=== PATIENT | female | born 1940 | race Caucasian/White ===

== ENCOUNTER 2016-12-21 14:25 | Emergency (ER) | payer MEDICARE, BC ==
[2016-12-21 14:49] VITALS: BP 134/68
[2016-12-21] MEDS ORDERED: Diphtheria,Pertussis(Acell),Tetanus Vaccine 0.5 ML Syringe IM ONE (14:56)
--- NOTE | 2016-12-21 15:11 | EDM.PDOC ---
ED HPI GENERAL MEDICAL PROBLEM - General Chief Complaint: Laceration Stated Complaint: CUT ON FINGER Time Seen by Provider: 12/21/16 14:30 Source of Information: Reports: Patient History Limitations: Reports: No Limitations - History of Present Illness INITIAL COMMENTS - FREE TEXT/NARRATIVE: Patient was using a meat blender to cut carrots. She says she cut it to short and her finger ended up in the grater. She has no other complaints. She just wants to be patched up and get on her way. Arrives with help of a friend and in a wheelchair. Onset: Today, Sudden Location: Reports: Upper Extremity, Right Severity: Mild Associated Symptoms: Reports: No Other Symptoms - Related Data Allergies Allergy/AdvReac Type Severity Reaction Status Date / Time No Known Drug Allergies Allergy Cannot Verified 12/21/16 14:49 Remember Home Meds: Home Meds . [Unable to Verify Home Med List] 12/21/16 [History] Social & Family History - Tobacco Use Smoking Status *Q: Never Smoker - Recreational Drug Use Recreational Drug Use: No ED ROS GENERAL - Review of Systems Review Of Systems: See Below Constitutional: Reports: No Symptoms HEENT: Reports: No Symptoms Respiratory: Reports: No Symptoms Cardiovascular: Reports: No Symptoms Endocrine: Reports: No Symptoms GI/Abdominal: Reports: No Symptoms : Reports: No Symptoms Musculoskeletal: Reports: No Symptoms Skin: Reports: Wound Neurological: Reports: No Symptoms Psychiatric: Reports: No Symptoms Hematologic/Lymphatic: Reports: No Symptoms Immunologic: Reports: No Symptoms ED EXAM, SKIN/RASH Exam: See Below Exam Limited By: No Limitations General Appearance: Alert, WD/WN, No Apparent Distress Head: Atraumatic, Normocephalic Extremities: Normal Inspection, Normal Range of Motion, Non-Tender, No Pedal Edema, Normal Capillary Refill Neurological: Alert, Oriented, CN II-XII Intact, Normal Cognition, Normal Gait Psychiatric: Normal Affect, Normal Mood Skin: Warm, Dry, Wound/Incision (right ring finger does have a very small laceration and abrasion. Not deep.) Location, Skin: Upper Extremity, Right Characteristics: Linear Associated features: Warmth Lymphatic: No Adenopathy ED SKIN PROCEDURES - Laceration/Wound Repair Right Finger Lac/Wound length In cm: 1 Appearance: Superficial, Linear Distal NVT: Neuro & Vascular Intact, No Tendon Injury Exploration/Debridement/Repair: Wound Explored, In a Bloodless Field, No Foreign Material Found Closed with: Dermabond Sterile Dressing Applied: Nurse Tetanus Status Addressed: Yes Complications: No Course - Vital Signs Last Recorded V/S: Last Vital Signs Temp 36.4 C 12/21/16 14:46 Pulse 79 12/21/16 14:46 Resp 18 12/21/16 14:46 BP 134/68 12/21/16 14:46 Pulse Ox 93 L 12/21/16 14:46 - Orders/Labs/Meds Orders: Active Orders 24 hr Category Date Time Status Vaccines to be Administered [RC] PER UNIT ROUTINE Care 12/21/16 14:56 Ordered Diphth,Pertuss(Acell),Tet Vac [Adacel] Med 12/21/16 14:56 Once 0.5 ml IM .ONCE ONE Departure - Departure Time of Disposition: 15:00 Disposition: Home, Self-Care 01 Condition: Good Clinical Impression: Laceration of finger - Discharge Information Instructions: Laceration Care, Adult, [id number], Stitches, [place], or Adhesive Wound Closure, [id number] Forms: ED Department Discharge Additional Instructions: Keep clean and dry You may shower, wash with soap and water and pat dry. Watch for signs of infection including temperature over 101.5F, increased swelling, pain, warmth to the site, red streak up the finger pus like drainage from the area. The dermabond will dissolve in 7-10 days on its own. Please call us with any questions or concerns. - Problem List & Annotations (1) Laceration of finger SNOMED Code(s): 698907428 Code(s): S61.219A - LACERATION W/O FB OF UNSP FINGER W/O DAMAGE TO NAIL, INIT Status: Acute Priority: Low Qualifiers: Encounter type: initial encounter Finger: ring finger Damage to nail status: without damage Foreign body presence: without foreign body Laterality: right Qualified Code(s): S61.214A - Laceration without foreign body of right ring finger without damage to nail, initial encounter - Problem List Review Problem List Initiated/Reviewed/Updated: Yes - My Orders Last 24 Hours: My Active Orders 12/21/16 14:56 Vaccines to be Administered [RC] PER UNIT ROUTINE Diphth,Pertuss(Acell),Tet Vac [Adacel] 0.5 ml IM .ONCE ONE - Assessment/Plan Last 24 Hours: My Active Orders 12/21/16 14:56 Vaccines to be Administered [RC] PER UNIT ROUTINE Diphth,Pertuss(Acell),Tet Vac [Adacel] 0.5 ml IM .ONCE ONE Assessment:: right ring finger laceration Plan: Keep clean and dry You may shower, wash with soap and water and pat dry. Watch for signs of infection including temperature over 101.5F, increased swelling, pain, warmth to the site, red streak up the finger pus like drainage from the area. The dermabond will dissolve in 7-10 days on its own. Please call us with any questions or concerns.
== END 2016-12-21 15:15 | disposition home or self-care (01) ==
LOC: VM.ED 14:25
DX: S61.214A Laceration without foreign body of right ring finger without damage to nail, initial encounter (principal); W31.89XA Contact with other specified machinery, initial encounter
CPT/HCPCS: 12001; 90471; 90715; 99282-GF-25; 99283

== ENCOUNTER 2017-06-01 14:08 | Emergency (ER) | payer MEDICARE, OTHER, BC ==
[2017-06-01] MEDS ORDERED: Sodium Chloride 0.9% 10 ML Syringe FLUSH PRN (14:15)
[2017-06-01] MEDS ORDERED: methylPREDNISolone Sodium Succinate 125 MG/2 ML SDV IVPUSH ONE (14:15)
[2017-06-01] MEDS ORDERED: Albuterol/Ipratropium 3.0-0.5 MG/3 ML Neb Soln NEB ONE (14:15)
[2017-06-01] MEDS ORDERED: LORazepam 2 MG/ML SDV IVPUSH ONE (14:22)
--- NOTE | 2017-06-01 14:27 | EDM.PDOC ---
ED HPI GENERAL MEDICAL PROBLEM - General Chief Complaint: Respiratory Problem Stated Complaint: Respiratory Problem; SOB; COPD Time Seen by Provider: 06/01/17 14:13 Source of Information: Reports: Patient, EMS Notes Reviewed, RN, RN Notes Reviewed History Limitations: Reports: No Limitations - History of Present Illness INITIAL COMMENTS - FREE TEXT/NARRATIVE: Patient is brought to the ED at [facility] via EMS for severe respiratory distress. According to patient, her symptoms began about 2 days ago. Patient states she is on home oxygen. She did try some medications for her breathing at home, but did not work, therefore she called the EMS. Upon their arrival, patient's O2 sats were in the low 80's and RR was in the mid to upper 30's. Patient appears extremely anxious. Patient has had a cough, dry, non- productive. Onset: Gradual Onset Date: 05/30/17 Left Middle Posterior Back Pain Score (Numeric/FACES): 5 - Related Data Allergies Allergy/AdvReac Type Severity Reaction Status Date / Time asthmacort Allergy Facial Uncoded 06/01/17 14:43 Swelling Home Meds: Home Meds . [Unable to Verify Home Med List] 12/21/16 [History] Social & Family History - Family History Family Medical History: Noncontributory - Tobacco Use Smoking Status *Q: Current Some Day Smoker - Recreational Drug Use Recreational Drug Use: No Drug Use in Last 12 Months: No ED ROS GENERAL - Review of Systems Review Of Systems: See Below Constitutional: Reports: Fever, Chills, Weakness, Decreased Appetite HEENT: Reports: No Symptoms Respiratory: Reports: Shortness of Breath, Wheezing, Cough. Denies: Sputum Cardiovascular: Reports: Chest Pain. Denies: Palpitations GI/Abdominal: Denies: Abdominal Pain, Nausea, Vomiting Skin: Reports: No Symptoms Neurological: Reports: No Symptoms. Denies: Dizziness, Headache ED EXAM, GENERAL - Physical Exam Exam: See Below Exam Limited By: No Limitations General Appearance: Alert, Severe Distress, Obese Head: Atraumatic, Normocephalic Neck: Supple Respiratory/Chest: Respiratory Distress, Decreased Breath Sounds, Crackles, Wheezing Cardiovascular: No Murmur, Tachycardia Peripheral Pulses: 2+: Radial (L), Radial (R) GI/Abdominal: Soft, Non-Tender, Abnormal Bowel Sounds (Hypoactive) Neurological: Alert, Oriented Skin Exam: Warm, Dry, Intact, Normal Color, No Rash EKG INTERPRETATION EKG Date: 06/01/17 Time: 14:21 Rhythm: Other (Sinus Tachycardia) Rate (Beats/Min): 128 [place]: Normal P-Wave: Present QRS: Normal ST-T: Normal QT: Normal HI/PQ Interval: 0.13 Comparison: NA - No Prior EKG EKG Interpretation Comments: 1. Sinus Tachycardia with PVC's 2. 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 Abnormal Rhythm ECG Course - Vital Signs Last Recorded V/S: Last Vital Signs Temp 39.1 C H 06/01/17 14:08 Pulse 128 H 06/01/17 14:08 Resp 35 H 06/01/17 15:00 BP 128/89 06/01/17 15:00 Pulse Ox 92 L 06/01/17 15:00 - Orders/Labs/Meds Orders: Active Orders 24 hr Category Date Time Status EKG 12 Lead [EKG Documentation Completion] [RC] STAT Care 06/01/17 14:16 Ordered Oxygen Therapy, ED [RC] ASDIRECTED Care 06/01/17 14:45 Active RT Aerosol Therapy [RC] ASDIRECTED Care 06/01/17 14:16 Active Chest 1V Frontal [CR] Stat Exams 06/01/17 14:16 Taken BASIC METABOLIC PANEL,BMP [CHEM] Stat Lab 06/01/17 14:30 Results C-REACTIVE PROTEIN [CHEM] Stat Lab 06/01/17 14:30 Received CK W CKMB [CHEM] Stat Lab 06/01/17 14:30 Results LACTIC ACID [CHEM] Stat Lab 06/01/17 14:30 Received MAGNESIUM [CHEM] Stat Lab 06/01/17 14:30 Results PRO B-TYPE NATRIUR PEPT,BNPPRO [CHEM] Stat Lab 06/01/17 14:30 Results TROPONIN I [CHEM] Stat Lab 06/01/17 14:30 Results Magnesium Sulfate/Water [Magnesium Sulfate 2 GM in Med 06/01/17 15:36 Active Water 50 ML] 2 gm Premix Bag 1 bag IV ONETIME Sodium Chloride 0.9% [Normal Saline] 500 ml Med 06/01/17 14:42 Active IV ONETIME Sodium Chloride 0.9% [Saline Flush] Med 06/01/17 14:15 Active 10 ml FLUSH ASDIRECTED PRN Peripheral IV Insertion Adult [OM.PC] Routine Oth 06/01/17 14:15 Ordered Medication Orders Sodium Chloride (Normal Saline) 500 mls @ 30 mls/hr IV ONETIME ONE Stop: 06/02/17 07:21 Last Admin: 06/01/17 15:00 Dose: 30 mls/hr Magnesium Sulfate 2 gm/ Premix 50 mls @ 25 mls/hr IV ONETIME ONE Stop: 06/01/17 17:35 Sodium Chloride (Saline Flush) 10 ml FLUSH ASDIRECTED PRN PRN Reason: Keep Vein Open Labs: Laboratory Tests 06/01/17 06/01/17 06/01/17 Range/Units 14:30 14:30 14:53 WBC 26.3 H* (4.0-10.0) x10^3/uL RBC 4.07 (4.00-5.50) x10^6/uL Hgb 12.2 D (12.0-16.0) g/dL Hct 38.9 (33.0-47.0) % MCV 95.6 H D (78.0-93.0) fL MCH 30.0 (26.0-32.0) pg MCHC 31.4 L (32.0-36.0) g/dL RDW Coeff of Siddharth 18.2 H (10.0-15.0) % Plt Count 247 D (130-400) x10^3/uL Add Manual Diff Yes Neutrophils % (Manual) 71 (50-80) % Band Neutrophils % 12 H (0-6) % Lymphocytes % (Manual) 12 L (25-50) % Monocytes % (Manual) 5 (2-11) % Platelet Estimate Adequate Anisocytosis 1+ slight H POC ABG pH 7.475 H (7.35-7.45) POC ABG pCO2 51 H (35-45) mmHG POC ABG pO2 57 L* (80-105) mmHG POC ABG HCO3 38 H (22-26) mmol/L POC ABG Total CO2 39 H (23-27) mmol/L POC ABG O2 Sat 90 L (95-98) % POC ABG Base Excess 14 H (-2-3) mmol/L POC FiO2 0.50 Sodium 141 (136-145) mmol/L Potassium 3.9 (3.5-5.1) mmol/L Chloride 98 (98-107) mmol/L Carbon Dioxide 31 (21-32) mmol/L BUN 23 H (7-18) mg/dL Creatinine 1.0 (0.55-1.02) mg/dL Est Cr Clr Drug Dosing 38.44 mL/min Estimated GFR (MDRD) 54 Glucose 146 H (74-106) mg/dL Calcium 9.0 (8.5-10.1) mg/dL Magnesium 1.6 L (1.8-2.4) mg/dL Creatine Kinase (26-192) U/L Troponin I < 0.017 (<=0.056) ng/mL NT-Pro-B Natriuret Pep 653 H (<=450) pg/mL POC Result Comm Called critical res Meds: Medications Generic Name Dose Route Start Last Admin Trade Name Freq PRN Reason Stop Dose Admin Sodium Chloride 500 mls @ 30 mls/hr 06/01/17 14:42 06/01/17 15:00 Normal Saline IV 06/02/17 07:21 30 mls/hr ONETIME ONE Administration Magnesium Sulfate 2 gm/ Premix 50 mls @ 25 mls/hr 06/01/17 15:36 IV 06/01/17 17:35 ONETIME ONE Sodium Chloride 10 ml 06/01/17 14:15 Saline Flush FLUSH ASDIRECTED PRN Keep Vein Open Discontinued Medications Generic Name Dose Route Start Last Admin Trade Name Freq PRN Reason Stop Dose Admin Albuterol/Ipratropium 3 ml 06/01/17 14:15 06/01/17 14:28 Duoneb 3.0-0.5 Mg/3 Ml NEB 06/01/17 14:16 3 ml ONETIME ONE Administration Ceftriaxone Sodium 1 gm 06/01/17 14:43 06/01/17 15:00 Rocephin IVPUSH 06/01/17 14:44 1 gm ONETIME ONE Administration Lorazepam 1 mg 06/01/17 14:22 06/01/17 14:29 Ativan IVPUSH 06/01/17 14:23 1 mg ONETIME ONE Administration Methylprednisolone Sodium Succinate 125 mg 06/01/17 14:15 06/01/17 14:32 Solu-Medrol IVPUSH 06/01/17 14:16 125 mg ONETIME ONE Administration - Radiology Interpretation Free Text/Narrative:: CXR: Question of early infiltrate at right lung base - see scanned report in EMR Departure - Departure Time of Disposition: 15:33 Disposition: DC/Tfer to Acute Hospital 02 Condition: Fair Clinical Impression: COPD exacerbation, Tachycardia Pneumonia Qualifiers: Pneumonia type: due to unspecified organism Laterality: right Lung location: lower lobe of lung Qualified Code(s): J18.1 - Lobar pneumonia, unspecified organism Leukocytosis Qualifiers: Leukocytosis type: bandemia Qualified Code(s): D72.825 - Bandemia - Discharge Information Forms: Interfacility Transfer [facility] ED Communication - ED Communication Date/Time Date: 06/01/17 Time Called: 15:21 - Discussed Case With (1) Discussed Case With (1): Admitting Provider (Dr. Carrasco, Hospitalist. Report given. All questions answered. Patient will be sent via ALS ground. Patient agrees with POC and wishes to proceed.) - Conversation Summary Admitting Provider Agreed to Patient's Admission: Yes Patient Aware of Amendments fo Care Plan: Yes - Problem List Review Problem List Initiated/Reviewed/Updated: Yes - My Orders Last 24 Hours: My Active Orders 06/01/17 14:15 Sodium Chloride 0.9% [Saline Flush] 10 ml FLUSH ASDIRECTED PRN Peripheral IV Insertion Adult [OM.PC] Routine 06/01/17 14:16 EKG 12 Lead [EKG Documentation Completion] [RC] STAT RT Aerosol Therapy [RC] ASDIRECTED Chest 1V Frontal [CR] Stat 06/01/17 14:30 BASIC METABOLIC PANEL,BMP [CHEM] Stat C-REACTIVE PROTEIN [CHEM] Stat CK W CKMB [CHEM] Stat LACTIC ACID [CHEM] Stat MAGNESIUM [CHEM] Stat PRO B-TYPE NATRIUR PEPT,BNPPRO [CHEM] Stat TROPONIN I [CHEM] Stat 06/01/17 14:42 Sodium Chloride 0.9% [Normal Saline] 500 ml IV ONETIME 06/01/17 14:45 Oxygen Therapy, ED [RC] ASDIRECTED 06/01/17 15:36 Magnesium Sulfate/Water [Magnesium Sulfate 2 GM in Water 50 ML] 2 gm Premix Bag 1 bag IV ONETIME - Assessment/Plan Last 24 Hours: My Active Orders 06/01/17 14:15 Sodium Chloride 0.9% [Saline Flush] 10 ml FLUSH ASDIRECTED PRN Peripheral IV Insertion Adult [OM.PC] Routine 06/01/17 14:16 EKG 12 Lead [EKG Documentation Completion] [RC] STAT RT Aerosol Therapy [RC] ASDIRECTED Chest 1V Frontal [CR] Stat 06/01/17 14:30 BASIC METABOLIC PANEL,BMP [CHEM] Stat C-REACTIVE PROTEIN [CHEM] Stat CK W CKMB [CHEM] Stat LACTIC ACID [CHEM] Stat MAGNESIUM [CHEM] Stat PRO B-TYPE NATRIUR PEPT,BNPPRO [CHEM] Stat TROPONIN I [CHEM] Stat 06/01/17 14:42 Sodium Chloride 0.9% [Normal Saline] 500 ml IV ONETIME 06/01/17 14:45 Oxygen Therapy, ED [RC] ASDIRECTED 06/01/17 15:36 Magnesium Sulfate/Water [Magnesium Sulfate 2 GM in Water 50 ML] 2 gm Premix Bag 1 bag IV ONETIME Plan: Case discussed with Dr. Carrasco. Patient will be sent to [facility] via ALS ground. Report given. All questions answered. Patient agrees with POC and wishes to proceed. IVF given slowly due to tenuous CHF.
[2017-06-01] MEDS ORDERED: Sodium Chloride 0.9% 500 ML IV ONE (14:42)
[2017-06-01] MEDS ORDERED: cefTRIAXone 1 GM Vial IVPUSH ONE (14:43)
[2017-06-01 15:17] LABS: CHLORIDE,CL 98 mmol/L (98-107); SODIUM,NA 141 mmol/L (136-145)
[2017-06-01] MEDS ORDERED: Magnesium Sulfate/Water 2 GM in Premix Bag 1 BAG IV ONE (15:36)
[2017-06-01] MEDS ORDERED: Morphine 2 MG/ML Syringe IVPUSH ONE (15:40)
[2017-06-01 15:42] VITALS: BP 137/69
== END 2017-06-01 16:55 | disposition short-term general hospital (02) ==
LOC: VM.ED 14:08
DX: J44.1 Chronic obstructive pulmonary disease with (acute) exacerbation (principal); J18.9 Pneumonia, unspecified organism; D72.825 Bandemia; F17.200 Nicotine dependence, unspecified, uncomplicated
CPT/HCPCS: 36415; 36600; 71045; 80048; 82550; 82803; 83605; 83735; 83880; 84484; 85025; 86140; 87804; 93005; 94640; 96361; 96365; 96375; 99285; J0696; J2060; J2270; J2930; J7040; 99284-GF; J3475

== ENCOUNTER 2017-08-09 08:23 | Inpatient (IN) | payer MEDICARE, OTHER ==
[2017-08-09] MEDS ORDERED: Albuterol/Ipratropium 3.0-0.5 MG/3 ML Neb Soln NEB ONE (08:31)
[2017-08-09] MEDS ORDERED: methylPREDNISolone Sodium Succinate 125 MG/2 ML SDV IV ONE (09:05)
[2017-08-09 09:39] LABS: CHLORIDE,CL 100 mmol/L (98-107); SODIUM,NA 142 mmol/L (136-145)
[2017-08-09] MEDS: Sodium Chloride 0.9% 10 ML Syringe FLUSH PRN ×3 (09:51→19:55)
[2017-08-09] MEDS ORDERED: cefTRIAXone 2 GM Vial IVPUSH ONE (10:11)
[2017-08-09] MEDS ORDERED: Azithromycin 500 MG in Sodium Chloride 0.9% 250 ML IV ONE (10:11)
[2017-08-09] MEDS ORDERED: Acetaminophen 325 MG Tab PO PRN (12:00)
[2017-08-09] MEDS ORDERED: tiZANidine 4 MG Tab PO PRN (12:40)
[2017-08-09] MEDS ORDERED: Gabapentin 300 MG Cap PO PRN (12:40)
[2017-08-09] MEDS ORDERED: Nitroglycerin 0.4 MG Tab.SL SL PRN (12:40)
[2017-08-09] MEDS ORDERED: Polyethylene Glycol 3350 Powder 17 GM Packet PO PRN (12:40)
--- NOTE | 2017-08-09 12:54 | EDM.PDOC ---
ED HPI GENERAL MEDICAL PROBLEM - General Chief Complaint: Respiratory Problem Stated Complaint: ER Time Seen by Provider: 08/09/17 08:25 Source of Information: Reports: Patient History Limitations: Reports: Respiratory Distress - History of Present Illness INITIAL COMMENTS - FREE TEXT/NARRATIVE: Pt. has had productive cough and chest congestion for 4 days. She states that she began experiencing shortness of breath and increased work of breathing about 2 days ago. Denies any fever or chills. States that she feels weak and is experiencing BREWER. She states that her cough is productive of yellowish sputum. It is not blood- tinged. Denies any substernal chest pain. Pt. O2 sat. is normally around 90% on O2 at home at 4.5L/min. It was around 80% on arrival of EMS. Pt. was subsequently placed on CPAP and it improved to around 90%-91%. Onset Date: 08/07/17 Duration: Getting Worse Associated Symptoms: Reports: Shortness of Breath Treatments LATENT PRINT EXAMINER: Reports: IV/IO, Oxygen, Other (see below) Other Treatments LATENT PRINT EXAMINER: IV lasix 40 mg, cpap chest Pain Score (Numeric/FACES): 7 - Related Data Allergies Allergy/AdvReac Type Severity Reaction Status Date / Time asthmacort Allergy Facial Uncoded 08/09/17 08:47 Swelling Home Meds: Home Meds Ascorbic Acid [Vitamin C] 1,000 mg PO DAILY 08/09/17 [History] Aspirin [Ecotrin] 81 mg PO DAILY 08/09/17 [History] Benazepril [Lotensin] 20 mg PO DAILY 08/09/17 [History] Bumetanide [Bumetanide] 2 mg PO BID@0800,1400 08/09/17 [History] Chlorhexidine Gluconate [Chlorhexidine Gluconate] 15 ml PO BID 08/09/17 [History ] Cholecalciferol (Vitamin D3) [Vitamin D3] 1,000 unit PO DAILY 08/09/17 [History] Ferrous Sulfate [Iron] 325 mg PO BID 08/09/17 [History] Gabapentin [Neurontin] 300 mg PO TID PRN 08/09/17 [History] Magnesium Oxide 400 mg PO DAILY 08/09/17 [History] Melatonin 6 mg PO BEDTIME 08/09/17 [History] Metoprolol Succinate [Metoprolol Succinate] 50 mg PO DAILY 08/09/17 [History] Multivit-Min/FA/Lycopene/Lut [Centrum Silver Tablet] 1 tab PO DAILY 08/09/17 [ History] Nitroglycerin [Nitrostat] 0.4 mg SL ASDIRECTED 08/09/17 [History] Preston-3 Fatty Acids [Preston-3] 1 gm PO DAILY 08/09/17 [History] Omeprazole [Omeprazole] 20 mg PO BIDAC 08/09/17 [History] Polyethylene Glycol 3350 [MiraLAX] 17 gm PO DAILY PRN 08/09/17 [History] Pramipexole Di-HCl [Mirapex] 1 mg PO BEDTIME 08/09/17 [History] Rivaroxaban [Xarelto] 20 mg PO DAILY@1800 08/09/17 [History] Umeclidinium Brm/Vilanterol Tr [Anoro Ellipta 62.5-25 MCG] 1 inh PO DAILY [History] atorvaSTATin Calcium [Atorvastatin Calcium] 10 mg PO DAILY 08/09/17 [History] tiZANidine [Zanaflex] 2 mg PO TID PRN 08/09/17 [History] Past Medical History Cardiovascular History: Reports: Afib, Heart Failure, High Cholesterol, Hypertension Respiratory History: Reports: COPD, Other (See Below) Other Respiratory History: pulmonary nodule R side. centrilobular emphysema. hypoxemia. respiratory failure Gastrointestinal History: Reports: Other (See Below) Other Gastrointestinal History: dyspepsia. colitits Genitourinary History: Reports: Other (See Below) Other Genitourinary History: cystocele. urinary retention Musculoskeletal History: Reports: Other (See Below) Other Musculoskeletal History: knee strain/pain Endocrine/Metabolic History: Reports: Vitamin D Deficiency - Past Surgical History HEENT Surgical History: Reports: Cataract Surgery Respiratory Surgical History: Reports: None GI Surgical History: Reports: None, Appendectomy, Colonoscopy Other GI Surgeries/Procedures: colonoscopy 03/03/15 Female Surgical History: Reports: Hysterectomy Other Female Surgeries/Procedures: Paravaginal defect RPR (WRPR cystocele stress incont/incomp Social & Family History - Family History Family Medical History: Noncontributory - Tobacco Use Smoking Status *Q: Former Smoker Years of Tobacco use: 40 Packs/Tins Daily: 1 Used Tobacco, but Quit: Yes Month/Year Tobacco Last Used: 10 years ago Second Hand Smoke Exposure: No - Caffeine Use Caffeine Use: Reports: None - Recreational Drug Use Recreational Drug Use: No Drug Use in Last 12 Months: No ED ROS GENERAL - Review of Systems Review Of Systems: See Below Constitutional: Reports: Malaise HEENT: Reports: No Symptoms Respiratory: Reports: Shortness of Breath, Wheezing, Cough, Sputum Cardiovascular: Reports: Dyspnea on Exertion Endocrine: Reports: No Symptoms GI/Abdominal: Reports: No Symptoms : Reports: No Symptoms Musculoskeletal: Reports: No Symptoms Skin: Reports: No Symptoms Neurological: Reports: No Symptoms Psychiatric: Reports: No Symptoms Hematologic/Lymphatic: Reports: No Symptoms Immunologic: Reports: No Symptoms ED EXAM, GENERAL - Physical Exam Exam: See Below Exam Limited By: No Limitations General Appearance: Alert, WD/WN, No Apparent Distress Eye Exam: Bilateral Eye: EOMI, Normal Fundi, Normal Inspection, PERRL Ears: Normal External Exam, Normal Canal, Hearing Grossly Normal, Normal TMs Ear Exam: Bilateral Ear: Auricle Normal, Canal Normal, TM normal Nose: Normal Inspection, Normal Mucosa, No Blood Throat/Mouth: Normal Inspection, Normal Lips, Normal Teeth, Normal Gums, Normal Oropharynx, Normal Voice, No Airway Compromise Head: Atraumatic, Normocephalic Neck: Normal Inspection, Supple, Non-Tender, Full Range of Motion Respiratory/Chest: No Accessory Muscle Use, Respiratory Distress, Rales, Rhonchi , Wheezing Cardiovascular: Normal Peripheral Pulses, Regular Rate, Rhythm, No Edema, No Gallop, No JVD, No Murmur, No Rub Peripheral Pulses: 4+: Radial (L), Radial (R) GI/Abdominal: Normal Bowel Sounds, Soft, Non-Tender, No Organomegaly, No Distention, No Abnormal Bruit, No Mass (Female) Exam: Deferred Rectal (Female) Exam: Deferred Back Exam: Normal Inspection, Full Range of Motion Extremities: Normal Inspection, Normal Range of Motion, Non-Tender, Normal Capillary Refill, No Pedal Edema Neurological: Alert, Oriented, CN II-XII Intact, Normal Cognition, Normal Gait, Normal Reflexes, No Motor/Sensory Deficits Psychiatric: Normal Affect, Normal Mood Skin Exam: Warm, Dry, Intact, Normal Color, No Rash Lymphatic: No Adenopathy EKG INTERPRETATION Rhythm: NSR [place]: Normal P-Wave: Present QRS: Normal ST-T: Normal QT: Normal Comparison: No Change Course - Vital Signs Last Recorded V/S: Last Vital Signs Temp 36.6 C 08/09/17 14:28 Pulse 86 08/09/17 14:28 Resp 21 H 08/09/17 14:28 BP 117/63 08/09/17 14:28 Pulse Ox 91 L 08/09/17 14:28 - Orders/Labs/Meds Orders: Active Orders 24 hr Category Date Time Status RT Aerosol Therapy [RC] ASDIRECTED Care 08/09/17 08:31 Active Chest 1V Frontal [CR] Stat Exams 08/09/17 08:45 Taken CULTURE BLOOD [BC] Stat Lab 08/09/17 08:55 Received CULTURE BLOOD [BC] Stat Lab 08/09/17 09:05 Received Sodium Chloride 0.9% [Saline Flush] Med 08/09/17 08:29 Active 10 ml FLUSH ASDIRECTED PRN Blood Culture x2 Reflex Set [OM.PC] Stat Oth 08/09/17 08:30 Ordered Peripheral IV Insertion Adult [OM.PC] Routine Oth 08/09/17 08:30 Ordered Medication Orders Acetaminophen (Tylenol) 650 mg PO Q4H PRN PRN Reason: Pain (Mild 1-3)/fever Albuterol/Ipratropium (Duoneb 3.0-0.5 Mg/3 Ml) 3 ml NEB Q2H PRN PRN Reason: Cough Last Admin: 08/09/17 12:57 Dose: 3 ml Albuterol/Ipratropium (Duoneb 3.0-0.5 Mg/3 Ml) 3 ml NEB QIDRT [facility] Last Admin: 08/09/17 14:52 Dose: 3 ml Arformoterol Tartrate (Brovana) 15 mcg NEB BIDRT [facility] Atorvastatin Calcium (Lipitor) 10 mg PO DAILY [facility] Azithromycin (Zithromax) 500 mg PO DAILY [facility] Stop: 08/13/17 12:00 Bumetanide (Bumex) 2 mg PO BID@0800,1400 [facility] Last Admin: 08/09/17 13:50 Dose: 2 mg Ceftriaxone Sodium (Rocephin) 1 gm IVPUSH DAILY [facility] Cholecalciferol (Vitamin D3) 1,000 units PO DAILY [facility] Ferrous Sulfate (Ferrous Sulfate) 325 mg PO BIDMEALS [facility] Gabapentin (Neurontin) 300 mg PO TID PRN PRN Reason: Headache Magnesium Oxide (Magnesium Oxide) 400 mg PO DAILY [facility] Melatonin (Melatonin) 6 mg PO BEDTIME [facility] Methylprednisolone Sodium Succinate (Solu-Medrol) 40 mg IVPUSH Q12H [facility] Metoprolol Succinate (Toprol Xl) 50 mg PO DAILY [facility] Multivitamins/Minerals (Thera M Plus) 1 tab PO DAILY [facility] Nitroglycerin (Nitrostat) 0.4 mg SL ASDIRECTED PRN PRN Reason: Chest Pain Omeprazole (Omeprazole) 40 mg PO DAILY@0700 [facility] Last Admin: 08/09/17 14:33 Dose: 40 mg Polyethylene Glycol (Miralax) 17 gm PO DAILY PRN PRN Reason: Constipation Pramipexole Dihydrochloride (Mirapex) 1 mg PO BEDTIME [facility] Rivaroxaban (Xarelto) 20 mg PO DAILY@1800 [facility] Sodium Chloride (Saline Flush) 10 ml FLUSH ASDIRECTED PRN PRN Reason: Keep Vein Open Last Admin: 08/09/17 10:22 Dose: 10 ml Admin: 08/09/17 09:51 Dose: 10 ml Tizanidine HCl (Zanaflex) 2 mg PO TID PRN PRN Reason: Muscle Spasm Labs: Laboratory Tests 08/09/17 08/09/17 08/09/17 Range/Units 08:55 08:55 08:55 WBC 6.9 (4.0-10.0) x10^3/uL RBC 3.47 L (4.00-5.50) x10^6/uL Hgb 10.3 L D (12.0-16.0) g/dL Hct 35.0 (33.0-47.0) % MCV 100.9 H D (78.0-93.0) fL MCH 29.7 (26.0-32.0) pg MCHC 29.4 L (32.0-36.0) g/dL RDW Coeff of Siddharth 16.4 H (10.0-15.0) % Plt Count 248 (130-400) x10^3/uL Neut % (Auto) 42.3 L (50.0-80.0) % Lymph % (Auto) 44.7 (25.0-50.0) % [place] % (Auto) 11.4 H (2.0-11.0) % Eos % (Auto) 1.3 (0.0-4.0) % Baso % (Auto) 0.3 (0.2-1.2) % PT 11.5 (9.8-11.8) SEC INR 1.1 L (2.0-3.5) D-Dimer, Quantitative 0.19 (<=0.58) mg/LFEU POC ABG pH (7.35-7.45) POC ABG pCO2 (35-45) mmHG POC ABG pO2 (80-105) mmHG POC ABG HCO3 (22-26) mmol/L POC ABG Total CO2 (23-27) mmol/L POC ABG O2 Sat (95-98) % POC ABG Base Excess (-2-3) mmol/L POC FiO2 Sodium 142 (136-145) mmol/L Potassium 3.9 (3.5-5.1) mmol/L Chloride 100 (98-107) mmol/L Carbon Dioxide 33 H (21-32) mmol/L BUN 18 (7-18) mg/dL Creatinine 1.0 (0.55-1.02) mg/dL Est Cr Clr Drug Dosing 34.91 mL/min Estimated GFR (MDRD) 54 Glucose 112 H (74-106) mg/dL Lactic Acid (0.4-2.0) mmol/L Calcium 8.7 (8.5-10.1) mg/dL Corrected Calcium 9.18 (8.5-10.1) mg/dL Phosphorus 4.5 (2.6-4.7) mg/dL Magnesium 2.1 (1.8-2.4) mg/dL Total Bilirubin 0.4 (0.2-1.0) mg/dL AST 21 (15-37) U/L ALT 32 (14-59) U/L Alkaline Phosphatase 98 (46-116) U/L Troponin I < 0.017 (<=0.056) ng/mL C-Reactive Protein 6.3 H (<=0.9) mg/dL NT-Pro-B Natriuret Pep 457 H (<=450) pg/mL Total Protein 7.2 (6.4-8.2) g/dL Albumin 3.4 (3.4-5.0) g/dL Globulin 3.8 Albumin/Globulin Ratio 0.89 08/09/17 08/09/17 Range/Units 08:55 09:36 WBC (4.0-10.0) x10^3/uL RBC (4.00-5.50) x10^6/uL Hgb (12.0-16.0) g/dL Hct (33.0-47.0) % MCV (78.0-93.0) fL MCH (26.0-32.0) pg MCHC (32.0-36.0) g/dL RDW Coeff of Siddharth (10.0-15.0) % Plt Count (130-400) x10^3/uL Neut % (Auto) (50.0-80.0) % Lymph % (Auto) (25.0-50.0) % [place] % (Auto) (2.0-11.0) % Eos % (Auto) (0.0-4.0) % Baso % (Auto) (0.2-1.2) % PT (9.8-11.8) SEC INR (2.0-3.5) D-Dimer, Quantitative (<=0.58) mg/LFEU POC ABG pH 7.358 (7.35-7.45) POC ABG pCO2 59 H (35-45) mmHG POC ABG pO2 93 (80-105) mmHG POC ABG HCO3 33 H (22-26) mmol/L POC ABG Total CO2 35 H (23-27) mmol/L POC ABG O2 Sat 97 (95-98) % POC ABG Base Excess 8 H (-2-3) mmol/L POC FiO2 0.90 Sodium (136-145) mmol/L Potassium (3.5-5.1) mmol/L Chloride (98-107) mmol/L Carbon Dioxide (21-32) mmol/L BUN (7-18) mg/dL Creatinine (0.55-1.02) mg/dL Est Cr Clr Drug Dosing mL/min Estimated GFR (MDRD) Glucose (74-106) mg/dL Lactic Acid 1.0 (0.4-2.0) mmol/L Calcium (8.5-10.1) mg/dL Corrected Calcium (8.5-10.1) mg/dL Phosphorus (2.6-4.7) mg/dL Magnesium (1.8-2.4) mg/dL Total Bilirubin (0.2-1.0) mg/dL AST (15-37) U/L ALT (14-59) U/L Alkaline Phosphatase (46-116) U/L Troponin I (<=0.056) ng/mL C-Reactive Protein (<=0.9) mg/dL NT-Pro-B Natriuret Pep (<=450) pg/mL Total Protein (6.4-8.2) g/dL Albumin (3.4-5.0) g/dL Globulin Albumin/Globulin Ratio Meds: Medications Generic Name Dose Route Start Last Admin Trade Name Freq PRN Reason Stop Dose Admin Acetaminophen 650 mg 08/09/17 12:00 Tylenol PO Q4H PRN Pain (Mild 1-3)/fever Albuterol/Ipratropium 3 ml 08/09/17 12:05 08/09/17 12:57 Duoneb 3.0-0.5 Mg/3 Ml NEB 3 ml Q2H PRN Administration Cough Albuterol/Ipratropium 3 ml 08/09/17 15:00 08/09/17 14:52 Duoneb 3.0-0.5 Mg/3 Ml NEB 3 ml QIDRT [facility] Administration Arformoterol Tartrate 15 mcg 08/09/17 20:00 Brovana NEB BIDRT [facility] Atorvastatin Calcium 10 mg 08/10/17 08:00 Lipitor PO DAILY [facility] Azithromycin 500 mg 08/10/17 08:00 Zithromax PO 08/13/17 12:00 DAILY [facility] Bumetanide 2 mg 08/09/17 14:00 08/09/17 13:50 Bumex PO 2 mg BID@0800,1400 [facility] Administration Ceftriaxone Sodium 1 gm 08/10/17 08:00 Rocephin IVPUSH DAILY [facility] Cholecalciferol 1,000 units 08/10/17 08:00 Vitamin D3 PO DAILY [facility] Ferrous Sulfate 325 mg 08/09/17 18:00 Ferrous Sulfate PO BIDMEALS [facility] Gabapentin 300 mg 08/09/17 12:40 Neurontin PO TID PRN Headache Magnesium Oxide 400 mg 08/10/17 08:00 Magnesium Oxide PO DAILY [facility] Melatonin 6 mg 08/09/17 20:00 Melatonin PO BEDTIME [facility] Methylprednisolone Sodium Succinate 40 mg 08/09/17 20:00 Solu-Medrol IVPUSH Q12H [facility] Metoprolol Succinate 50 mg 08/10/17 08:00 Toprol Xl PO DAILY [facility] Multivitamins/Minerals 1 tab 08/10/17 08:00 Thera M Plus PO DAILY [facility] Nitroglycerin 0.4 mg 08/09/17 12:40 Nitrostat SL ASDIRECTED PRN Chest Pain Omeprazole 40 mg 08/09/17 14:00 08/09/17 14:33 Omeprazole PO 40 mg DAILY@0700 [facility] Administration Polyethylene Glycol 17 gm 08/09/17 12:40 Miralax PO DAILY PRN Constipation Pramipexole Dihydrochloride 1 mg 08/09/17 20:00 Mirapex PO BEDTIME [facility] Rivaroxaban 20 mg 08/09/17 18:00 Xarelto PO DAILY@1800 [facility] Sodium Chloride 10 ml 08/09/17 08:29 08/09/17 10:22 Saline Flush FLUSH 10 ml ASDIRECTED PRN Administration Keep Vein Open Tizanidine HCl 2 mg 08/09/17 12:40 Zanaflex PO TID PRN Muscle Spasm Discontinued Medications Generic Name Dose Route Start Last Admin Trade Name Freq PRN Reason Stop Dose Admin Albuterol/Ipratropium 3 ml 08/09/17 08:31 08/09/17 08:43 Duoneb 3.0-0.5 Mg/3 Ml NEB 08/09/17 08:32 3 ml ONETIME ONE Administration Ceftriaxone Sodium 2 gm 08/09/17 10:11 08/09/17 10:22 Rocephin IVPUSH 08/09/17 10:12 2 gm ONETIME ONE Administration Azithromycin 500 mg/ Sodium 250 mls @ 250 mls/hr 08/09/17 10:11 08/09/17 10: 22 Chloride IV 08/09/17 11:10 250 mls/hr ONETIME ONE Administration Methylprednisolone Sodium Succinate 125 mg 08/09/17 09:05 08/09/17 09:50 Solu-Medrol IV 08/09/17 09:06 125 mg ONETIME ONE Administration - Radiology Interpretation Free Text/Narrative:: portable chest x-ray showed R lower lobe infiltrate. - Re-Assessments/Exams Free Text/Narrative Re-Assessment/Exam: Pt. was on CPAP at 15 cmH2O on arrival and was tolerating this well. She was tachypneic with a resp. rate around 40. Her lung sounds were extremely diminished with rhonchi, wheezing, and crackles. Pt. was given a duoneb breathing treatment through the CPAP. Her lung sounds did improve somewhat after the nebulizer. Pt. was given solumedrol 125mg IV. Once her Chest x-ray was obtained and infiltrate was noted, pt. was given 2,000mg rocephin and 500mg azithromycin IV. Decision was made to admit the pt. to the floor acutely. CPAP was discontinued and she was maintaining O2 sats. of 90%-91% on O2 per NC at 4L/min. Departure - Departure Time of Disposition: 10:58 Disposition: Admitted As Inpatient 68 Clinical Impression: Hypoxemia Community acquired pneumonia Qualifiers: Laterality: right Lung location: lower lobe of lung Qualified Code(s): J18.1 - Lobar pneumonia, unspecified organism COPD (chronic obstructive pulmonary disease) Qualifiers: COPD type: COPD with acute exacerbation Qualified Code(s): J44.1 - Chronic obstructive pulmonary disease with (acute) exacerbation Congestive heart failure Qualifiers: Heart failure type: combined systolic and diastolic Heart failure chronicity: acute on chronic Qualified Code(s): I50.43 - Acute on chronic combined systolic (congestive) and diastolic (congestive) heart failure - Discharge Information - Problem List Review Problem List Initiated/Reviewed/Updated: Yes - My Orders Last 24 Hours: My Active Orders 08/09/17 08:29 Sodium Chloride 0.9% [Saline Flush] 10 ml FLUSH ASDIRECTED PRN 08/09/17 08:30 Blood Culture x2 Reflex Set [OM.PC] Stat Peripheral IV Insertion Adult [OM.PC] Routine 08/09/17 08:31 RT Aerosol Therapy [RC] ASDIRECTED 08/09/17 08:45 Chest 1V Frontal [CR] Stat 08/09/17 08:55 CULTURE BLOOD [BC] Stat 08/09/17 09:05 CULTURE BLOOD [BC] Stat - Assessment/Plan Last 24 Hours: My Active Orders 08/09/17 08:29 Sodium Chloride 0.9% [Saline Flush] 10 ml FLUSH ASDIRECTED PRN 08/09/17 08:30 Blood Culture x2 Reflex Set [OM.PC] Stat Peripheral IV Insertion Adult [OM.PC] Routine 08/09/17 08:31 RT Aerosol Therapy [RC] ASDIRECTED 08/09/17 08:45 Chest 1V Frontal [CR] Stat 08/09/17 08:55 CULTURE BLOOD [BC] Stat 08/09/17 09:05 CULTURE BLOOD [BC] Stat Assessment:: Respiratory failure Community acquired pneumonia COPD exacerbation CHF Plan: Pt. will be admitted acute to med surg. Pt. is a full code. Dr. Ibis Bro will be admitting for Dr. Sheikh. Please refer to her documentation.
[2017-08-09] MEDS: Albuterol/Ipratropium 3.0-0.5 MG/3 ML Neb Soln NEB PRN (12:57)
[2017-08-09] MEDS ORDERED: Bumetanide 1 MG Tab PO SCH (14:00)
[2017-08-09] MEDS: Omeprazole 20 MG Cap.CR PO SCH (14:33)
[2017-08-09] MEDS: Albuterol/Ipratropium 3.0-0.5 MG/3 ML Neb Soln NEB SCH ×2 (14:52→19:42)
[2017-08-09] MEDS ORDERED: Sodium Chloride 0.9% 500 ML IV ONE (17:04)
[2017-08-09] MEDS: Ferrous Sulfate 325 MG Tab PO SCH (17:13)
[2017-08-09] MEDS: Rivaroxaban 10 MG Tab PO SCH (17:14)
--- NOTE | 2017-08-09 17:16 | PCM.SN ---
- Free Text/Narrative Note: Note dictated Patient suppose to be on ANNEL inhibitor per PCP patient insists she is not taking it at home. BP dropped to 89/58 after her afternoon bumex dose so ANNEL held and BUMEX dose decreased to 1 mg BID with holding parameters. Metoprolol not taken today but ordered for tomorrow with holding parameters. BS over 200 due to steroids so increase accuchecks to QID and do Levemir 5 units daily for now. No fever, no tachycardia so I do not feel BP drop was due to sepsis. Bipap is available for patient she is on 9 L currently and is 92 %.
[2017-08-09] MEDS: Insulin Detemir 100 Units/ML 3 ML Pen SUBCUT SCH (17:18)
[2017-08-09] MEDS: methylPREDNISolone Sodium Succinate 40 MG/1 ML SDV IVPUSH SCH (19:42)
[2017-08-09] MEDS: Arformoterol 15 MCG/2 ML Neb Soln NEB SCH (19:42)
[2017-08-09] MEDS: Pramipexole 0.5 MG Tab PO SCH (19:43)
[2017-08-09] MEDS: Melatonin 3 MG Tab PO SCH (19:43)
--- NOTE | 2017-08-09 21:00 | HP ---
CHIEF COMPLAINT: Cough and shortness of breath. HISTORY OF PRESENT ILLNESS: This is a 77-year-old female with known COPD who had increasing cough, productive of yellowish sputum with shortness of breath and wheezing over the past 3 days. Yesterday she was feeling very poorly, but did not come in. Today, they had to call the ambulance. She got 40 mg of IV Lasix. She got a neb, Solu-Medrol, and her chest x-ray was showing a right lower lobe infiltrate. She was on CPAP for a while in the ER because her respiratory rates were up to 40. She was requiring up to 10 L to keep oxygen around 90%; on her 4.5 L at home, she was in the 80s. She is feeling better after these treatments, but is still short of breath and wheezing. She does have a history of a heart failure in the past, but in May she actually had a prolonged admission for pulmonary embolism, pneumonia, and COPD exacerbation. Her echo at that point was 70%. She has not noticed any weight gain in the last few days. She has not noticed more leg swelling. She has not had any fevers, but she has had generalized muscle aches, although her influenza test was negative. She is on a CPAP, but has not been able to get to [place] yet to get her BiPAP machine as she does have severe sleep apnea. She also had a pulmonary embolism back in May and she remains on Xarelto. She is denying any chest pain currently. She otherwise denies any history of coronary artery disease. Her pulmonary emboli were very small, nonobstructing, and in the right upper lobe and right lower lobe segmental branches. Otherwise, she is a nonsmoker currently. In May, she was treated with Levaquin for her infection. ALLERGIES: Her allergies include triamcinolone, unclear reaction, but I believe it was more of the inhaler version per her report and she is tolerating other inhalers. MEDICATIONS: Her medication list is reviewed. Prilosec 20 mg twice daily, Anoro Ellipta once daily, melatonin 2 tablets by mouth at bedtime, Mirapex 1 at bedtime, Toprol 50 mg daily, Lotensin 20 mg daily, Lipitor 10 mg daily, MiraLax 4 as needed for constipation, aspirin 81 mg daily, nitroglycerin 0.4 mg every 5 minutes as needed for chest pain, Neurontin 300 mg 3 times a day, fish oil 1000 mg daily, multivitamin daily, vitamin D 1000 units daily, and vitamin C 1000 mg daily. PAST MEDICAL HISTORY: Does include hyperglycemia, obesity, history of pulmonary nodule back in 2011, vitamin D deficiency, chronic nocturnal hypoxemia with severe sleep apnea, former smoker, quit in 2012, history of colitis, history of both acute and chronic diastolic heart failure with previous exacerbations, previous urinary retention with bladder prolapse, essential hypertension, emphysema with COPD, looks like in the past her FEV1 was in the moderate to severe range, but that might have been up to 10 years ago, chronically on oxygen; then in 2015, her FEV1 was 0.91 or 47%, FEV1/FVC ratio was 46, so severe airway obstruction; history of migraine headaches, dyspepsia, history of pulmonary embolism as discussed above, hypercapnia, CO2 was up around 70 during her admission in May, chronic iron deficiency anemia, especially after starting Xarelto in 05/2017, paroxysmal atrial fibrillation after pulmonary embolism in 05/2017, last colonoscopy was in 2014 with some external hemorrhoids and resolving colitis reported. REVIEW OF SYSTEMS: General: For weight, there have been no weight changes. No fever. No chills. HEENT: No sore throat. No congestion. Cardiac: She denies any chest tightness to me but did report some to the ambulance crew. She has had no heart palpitations. Respiratory: As stated in the HPI. She has had coughing, shortness of breath, and wheezing. Abdomen: No nausea, vomiting, abdominal pain. No diarrhea. No constipation. Musculoskeletal: She has no new joint pains but did have the muscle aches, otherwise. Neurologic: She has not been confused. Psychologic: She is not depressed or anxious. Otherwise, all systems are reviewed and found to be negative unless otherwise stated. PHYSICAL EXAMINATION: Vital Signs: Her temperature 99.4, that was a T-max. Her weight was 93.6 kg, pulse 76, blood pressure 119/62, respiratory rate 24, O2 95% on 10 L but on my exam, she was 90% on 7 L. General: She was in no acute distress. Heart: Regular rate and rhythm without murmur appreciated. Lungs: Inspiratory wheezing especially in the right upper lobe and left upper lobe, decreased in both bases. She had rhonchi in both bases. I did not appreciate any crackles. Otherwise, she did appear to have some good lung movements with good chest expansion and no accessory use. No tachypnea. Abdomen: Soft. Positive bowel sounds. Nontender. Nondistended. Extremities: Warm and dry with trace edema to her ankles. Her ankles were warm and dry. Mental Status: She was alert and orientated x3. IMAGING DATA: EKG did show a normal sinus rhythm. Chest x-ray portable view did show a developing right lower lobe infiltrate, which was not present on her Sarah x-rays at [place]. LABORATORY DATA: Showed a white count 6.9, hemoglobin 10.3, platelets 248. INR 1.1. D-dimer 0.19 or negative. PH 7.35, pCO2 59, PO2 93, presumably on 10 L. Sodium 142, potassium 3.9, chloride 100, bicarb 33, BUN 18, creatinine 1, glucose 112. Lactic acid 1, calcium 8.7, phosphorus 4.5, magnesium 2.1. ALT 32, AST 21, bilirubin 0.4. BNP mildly elevated at 457. CRP 6.3, albumin 3.4. ASSESSMENT AND PLAN: 1. Acute on chronic hypoxic respiratory failure secondary to a chronic obstructive pulmonary disease exacerbation with severe underlying chronic obstructive pulmonary disease and also a right lower lobe pneumonia, presumably community-acquired, although 2 months ago she did spend time in the hospital. Given the lack of fever and white count currently, I will continue with Rocephin and Zithromax but would upgrade to vancomycin and Zosyn especially if she were to have sepsis, but I do not believe this is sepsis currently. 2. Chronic obstructive pulmonary disease exacerbation with severe underlying chronic obstructive pulmonary disease. 3. Right lower lobe pneumonia as discussed above. 4. Paroxysmal atrial fibrillation, currently in sinus. We will monitor with telemetry. 5. History of pulmonary embolism. We will continue Xarelto. This will cover her for deep vein thrombosis prophylaxis as well. 6. History of chronic diastolic heart failure, stable currently. I do not feel this is an exacerbation. She has already received Lasix. We will continue her regular Bumex. Her EF is 70%. 7. Obesity. 8. History of hyperglycemia. I will do b.i.d. Accu-Cheks because the steroids will likely increase her blood sugars. 9. Hypercapnic respiratory failure. In addition, she probably has some element of chronic hypercapnia. Right now, she is not requiring BiPAP, but given her underlying sleep apnea, she will be using it overnight. We will repeat the ABGs if needed and follow clinically. 10.Severe sleep apnea. We will set her up with BiPAP overnight. 11.Iron deficiency anemia, chronic over the last couple months. Her hemoglobin is down slightly from the clinic reading a week ago, which was 11.1. We will repeat another hemoglobin in the morning. 12.History of dyspepsia. She will continue on her PPI. 13.Restless leg. She will continue home medications including Mirapex and Neurontin. 14.Essential hypertension. She will continue Toprol. She reports she has not been taking her Lotensin. 15.Hyperlipidemia. She will continue Lipitor. PLAN: At this point, the patient is admitted under acute care. Given the lack of coronary artery disease in the past, could consider discontinuing aspirin while on Xarelto if anemia continues to be a problem. We will continue her on Solu-Medrol 40 b.i.d., q.i.d. DuoNebs and in place of her Anoro Ellipta, I will add Brovana for now. We will also put her on Rocephin and oral Zithromax. She did get IV Zithromax in the ER. I will hold off on any PT now until she is more stable from a respiratory status. We will get the BiPAP set up for night use. We will have her on continuous oximetry and telemetry. Otherwise, the patient elects to be a code level 1. For DVT prophylaxis, she is covered with Xarelto. She will definitely be 2-midnight stay, potentially may need up to 96 hours, but we will just see how it goes day-to-day. Dr. Sheikh to resume care in the morning. MKA: 08/09/2017 12:30:57 MODL: 08/09/2017 18:46:19 /[id number] DEANN
[2017-08-10] MEDS: Albuterol/Ipratropium 3.0-0.5 MG/3 ML Neb Soln NEB PRN (05:00)
[2017-08-10] MEDS: Omeprazole 20 MG Cap.CR PO SCH (06:05)
[2017-08-10] MEDS: Arformoterol 15 MCG/2 ML Neb Soln NEB SCH ×2 (07:05→20:06)
[2017-08-10] MEDS: Albuterol/Ipratropium 3.0-0.5 MG/3 ML Neb Soln NEB SCH ×4 (07:06→20:06)
[2017-08-10] MEDS ORDERED: Magnesium Oxide 400 MG Tab PO SCH (08:00)
[2017-08-10] MEDS ORDERED: cefTRIAXone 1 GM Vial IVPUSH SCH (08:00)
[2017-08-10] MEDS ORDERED: Metoprolol Succinate 50 MG Tab.ER PO SCH (08:00)
[2017-08-10] MEDS ORDERED: Cholecalciferol (Vitamin D3) 1,000 Unit Tab PO SCH (08:00)
[2017-08-10] MEDS ORDERED: Azithromycin 250 MG Tab PO SCH (08:00)
[2017-08-10] MEDS ORDERED: atorvaSTATin 10 MG Tab PO SCH (08:00)
[2017-08-10] MEDS ORDERED: Multivitamins with Iron/Calcium/Folic Acid/Minerals Tab PO SCH (08:00)
[2017-08-10] MEDS ORDERED: Iopamidol 612 MG/ML 100 ML Bottle IVPUSH ONE (08:35)
[2017-08-10] MEDS ORDERED: guaiFENesin/Dextromethorphan 100-10 MG/5 ML Soln 10 ML Cup PO PRN (08:35)
[2017-08-10] MEDS ORDERED: Lisinopril 20 MG Tab PO SCH (08:45)
[2017-08-10] MEDS: methylPREDNISolone Sodium Succinate 40 MG/1 ML SDV IVPUSH SCH (08:45)
[2017-08-10] MEDS ORDERED: Iopamidol 612 MG/ML 50 ML SDV IVPUSH ONE (09:12)
[2017-08-10] MEDS: Bumetanide 1 MG Tab PO SCH ×2 (09:29→13:47)
[2017-08-10] MEDS: Insulin Detemir 100 Units/ML 3 ML Pen SUBCUT SCH (09:30)
[2017-08-10] MEDS: Ferrous Sulfate 325 MG Tab PO SCH ×2 (09:30→17:33)
[2017-08-10] MEDS: methylPREDNISolone Sodium Succinate 125 MG/2 ML SDV IVPUSH SCH ×2 (09:32→17:33)
--- NOTE | 2017-08-10 10:06 | PN ---
Progress Note for CHRISTOPHE CHAMBERLAIN Date: 08/10/2017 Room #: VM.214 SUBJECTIVE: The patient still got quite a bit of coughing, tightness of breath, feels like she just cannot cough loose any material that is in her lungs. She commented that she had had family visiting and they had cold and that is what she feels that she has come down with. The patient to note does have significant COPD problems and also was recently found to have pulmonary emboli, which she had been transferred to [place] in May for and she is on Xarelto for this. The patient at the end of May had been taken off her amlodipine, as she was having some problems with hypotension and peripheral edema, but her benazepril had been kept. Yesterday on admission, the patient thought her benazepril was the medication that had been stopped. The patient did have an episode of hypotension last evening when she received some IV Bumex, but that has resolved. Her pulse also was 70s on admission, has gone up to the 110s now. The patient's saturations have just been still hovering around 90% on 8 L. She did have BiPAP last night when she slept as she is supposed to get this soon at home as well. OBJECTIVE: Vital Signs: Her temperature is 36.7, her pulse is 110, blood pressure is 132/67, respiratory rate 17, saturations are 98% on 8 L. General: The patient has very tight paroxysmal cough noted. She is able to talk normal sentences. Heart: Slightly tachy. Lungs: Have some inspiratory wheeze on right base. Left has diminished breath sounds. Abdomen: Bowel sounds are present. Soft, nontender. Lower Extremities: No edema. Neurologic: She is alert, pleasant to visit with. LABORATORY DATA: Today shows that her white blood cell count is normal at 3.9, hemoglobin has dropped slightly to 9.9, platelets are 243 with 66 segs, 20.9 lymphocytes, 12.5 monocytes. Her sodium is 141, potassium is 3.8, chloride is 101, carbon dioxide is 33, same. BUN is up to 23, creatinine 1.0. GFR is 54, glucose is 181, calcium is 8.3. IMPRESSION: 1. Shortness of breath, suspect due to respiratory infection such as pneumonitis. 2. Severe chronic obstructive pulmonary disease. 3. Hypoxemia. 4. Congestive heart failure. 5. Hypertension. 6. CO2 retainer. PLAN: We will resume her Solu-Medrol to 125 mg IV. We will do a CT scan of her chest to see the status of her previous PEs as well as to see how much pneumonia she may have and to make certain she does not have any sort of bronchogenic masses present. We will repeat blood gases this morning. The patient may need to have BiPAP throughout the day, but we will see how her blood gases are. The patient is code level 1 status and does desire to be intubated if that would be what is needed. We will have Dr. Desire Bro cover for me after 12 o'clock today, as I will be gone until next Tuesday, the . We will continue her on her Rocephin as well as her azithromycin. Right now, she is not on any IV maintenance fluids, as she does get the IV fluids for her medicines, but that may need to be started also if her lungs tend to hover a little bit on the dry side. To note, her cultures for influenza were negative, and her sputum culture showed normal respiratory tien after a day. GM08/10/2017 08:42:17 MODL: 08/10/2017 09:54:15 /[id number]
--- NOTE | 2017-08-10 11:16 | PCM.SN ---
- Free Text/Narrative Note: CT lung shows no PE, mostly atelectasis, ABG's about the same, so will do incentive spirometry, flutter valve, increase solumedrol Dr Gema Bro updated as she will assume care as off noon today.
[2017-08-10] MEDS ORDERED: diphenhydrAMINE 25 MG Cap PO ONE (12:48)
[2017-08-10] MEDS: Rivaroxaban 10 MG Tab PO SCH (17:33)
[2017-08-10] MEDS: Melatonin 3 MG Tab PO SCH (20:06)
[2017-08-10] MEDS: Pramipexole 0.5 MG Tab PO SCH (20:06)
[2017-08-11] MEDS: Sodium Chloride 0.9% 10 ML Syringe FLUSH PRN (00:13)
[2017-08-11] MEDS: methylPREDNISolone Sodium Succinate 125 MG/2 ML SDV IVPUSH SCH (00:13)
[2017-08-11 05:32] VITALS: BP 154/70
[2017-08-11] MEDS: Omeprazole 20 MG Cap.CR PO SCH (06:18)
[2017-08-11] MEDS: Arformoterol 15 MCG/2 ML Neb Soln NEB SCH (07:07)
[2017-08-11] MEDS: Albuterol/Ipratropium 3.0-0.5 MG/3 ML Neb Soln NEB SCH (07:07)
[2017-08-11] MEDS ORDERED: Magnesium Sulfate/Water 2 GM in Premix Bag 1 BAG IV ONE (08:20)
[2017-08-11] MEDS ORDERED: Amiodarone 150 MG/3 ML SDV IVPUSH ONE (08:41)
--- NOTE | 2017-08-11 14:23 | DISCH ---
PRIMARY DISCHARGE DIAGNOSES: 1. Presumed ventricular tachycardia, which resulted in chest pain, but was stable, not requiring cardioversion, converted to a sinus rhythm with amiodarone bolus. 2. Acute on chronic hypoxic and hypercapnic respiratory failure secondary to a chronic obstructive pulmonary disease exacerbation. 3. Presumed pneumonia but ruled out by CT scan being negative for an infiltrate. 4. Hyperglycemia due to steroids. 5. Paroxysmal atrial fibrillation. She was in sinus. There was a possibility her ventricular tachycardia could have been an SVT or an atrial flutter. Cardiology will further evaluate when she arrives in [place]. 6. History of pulmonary embolism, on Xarelto, ruled out for recurrence with a CT PE protocol on 08/10. 7. History of chronic diastolic heart failure, mild exacerbation, probably due to the COPD. Her EF is 70% back in 05/2017. She diuresed well on her oral Bumex. Dose was actually even decreased to 1 mg twice daily due to hypotension on her 1st day. 8. Obesity. 9. Severe sleep apnea, on BiPAP. 10.Iron deficiency anemia, chronic and stable on discharge. Her hemoglobin was at 10.7. 11.History of dyspepsia, on a PPI. 12.Restless legs syndrome. 13.Essential hypertension, controlled. She continued her Toprol during her stay. She did not receive Lotensin on the date due to hypotension. 14.Hyperlipidemia. REASON FOR ADMISSION: On the date of admission, this 77-year-old female had been sick at home with cough, productive of some yellow sputum and shortness of breath and wheezing for 3 days. She presented to the emergency room. She required nebulizers, Solu-Medrol. Chest x-ray was showing a right lower lobe infiltrate. She was placed on CPAP, but then was able to be changed over to about 10 L of oxygen and she normally uses about 4-1/2 L at home. Oxygen saturations were in the 80s, but did come up to the 90s on increased oxygen high- flow up to 9 L. She had no chest pain. She was improving just gradually, but still requiring high amounts of oxygen, still coughing. Her Solu-Medrol dose was increased to 125 q.6 hours on the . She felt a little nauseated after that. There was some question of some short runs of ventricular tachycardia earlier in that day, they were nonsustained. They look more like aberrancy. Unfortunately that evening she started to have more runs and then on the morning of the , she went into ventricular tachycardia rhythm consistently over 5 minutes and I contacted Cardiology. She remained in ventricular tachycardia- type rhythm. They did recommend a 150 mg of amiodarone, which did convert her to a sinus rhythm. The patient had chest discomfort when she was in the fast rhythm and felt better when she was not. Her blood pressures were tolerating this. They were in the 120s and 130 systolic range. She was placed back on BiPAP in the morning to help her oxygen saturations improve as they were down to 78%, even on the 12 L after going to the bathroom. Because of her unstable status with the ventricular tachycardia, transfer was arranged to [place] and Dr. Kenny, hospitalist, Dr. Gamez, Cardiology agreed to accept the patient and will be going directly to the ER. The patient was agreeable with this plan. Nursing did update her daughter. Otherwise, her troponin was added on that morning and was negative at 0.017. Her proBNP did come up slightly to 1328. Her CRP was 2.8. Labs on transfer; creatinine 1, bicarb 34 which is around her baseline, BUN 24, potassium 4.5, Mag 2, and white count 9.7. Hemoglobin again stable at 10.7, platelets 281. For DVT prophylaxis, she was on Xarelto during her stay. She also was requesting a Guajardo be placed yesterday and she did diurese some 4.6 L otherwise. For her blood sugar, she was started on some 5 units daily of Levemir as they were over 200 on the Solu-Medrol and it was 168 this morning. She did not receive any of her medications this morning, but did get a nebulizer at 7. She also did receive her regular Toprol yesterday. PHYSICAL EXAMINATION: Vital signs: On discharge, her vitals included a blood pressure of 133/80, heart rate which originally was up to 160 had her improved to the 80s. Her respiratory rate was up to 36. This had improved slightly on transfer. O2 saturations were 92% on 12 L when in BiPAP. Discharging weight was 94.5 kg. General: She was in acute distress. She was having increased work of breathing. She was sweating, appeared uncomfortable. Cardiac: Her heart was a regular rate and rhythm, but tachycardic. I could not appreciate any murmurs. Respiratory: Lungs sounds were decreased throughout. I did not even appreciate any wheezing today or rhonchi. Air movement was decreased. GI: Abdomen nondistended, nontender. Extremities: Legs did have just trace edema. Mental status: She was alert. She was orientated x3. Moods were appropriate. 60 minutes of critical care time involved with transferring this critical patient requiring BiPAP and amiodarone. Amiodarone infusion was started on the transfer. MKA: 08/11/2017 09:39:14 MODL: 08/11/2017 14:15:08 /[id number]
== END 2017-08-11 09:25 | disposition short-term general hospital (02) | DRG 309 ==
LOC: VM.ED 08:23 → VM.MS 10:30
PROVIDERS: ADMIT Internal Medicine; ATTEND Family Medicine
DX: J44.0 Chronic obstructive pulmonary disease with (acute) lower respiratory infection (principal); J18.9 Pneumonia, unspecified organism; I47.2 Ventricular tachycardia; I48.91 Unspecified atrial fibrillation; I50.43 Acute on chronic combined systolic (congestive) and diastolic (congestive) heart failure; E78.00 Pure hypercholesterolemia, unspecified; J44.1 Chronic obstructive pulmonary disease with (acute) exacerbation; J44.9 Chronic obstructive pulmonary disease, unspecified; E55.9 Vitamin D deficiency, unspecified; I50.32 Chronic diastolic (congestive) heart failure; R09.02 Hypoxemia; R06.89 Other abnormalities of breathing; Z87.891 Personal history of nicotine dependence; R73.9 Hyperglycemia, unspecified; T38.0X5A Adverse effect of glucocorticoids and synthetic analogues, initial encounter; Y92.019 Unspecified place in single-family (private) house as the place of occurrence of the external cause; I48.0 Paroxysmal atrial fibrillation; E66.9 Obesity, unspecified; G47.30 Sleep apnea, unspecified; D50.9 Iron deficiency anemia, unspecified; R10.13 Epigastric pain; G25.81 Restless legs syndrome; I10 Essential (primary) hypertension; Z86.711 Personal history of pulmonary embolism; Z88.8 Allergy status to other drugs, medicaments and biological substances; Z79.899 Other long term (current) drug therapy; Z79.82 Long term (current) use of aspirin
CPT/HCPCS: 36415; 36600; 51702; 71045; 71275; 80048; 80053; 82803; 82962; 83605; 83735; 83880; 84100; 84484; 85025; 85379; 85610; 86140; 87040; 87070; 87205; 87804; 93005; 93010; 94640; 94660; 94760; 96365; 96375; 99285; 99285-GF; A9270-GY; J0282; J0456; J0696; J1815-GY; J2920; J2930; J3475; J7040; J7050; Q9967

== ENCOUNTER 2017-11-24 10:05 | Emergency (ER) | payer MEDICARE, OTHER ==
--- NOTE | 2017-11-24 11:00 | EDM.PDOC ---
ED HPI GENERAL MEDICAL PROBLEM - General Chief Complaint: Respiratory Problem Stated Complaint: ER Time Seen by Provider: 11/24/17 10:10 Source of Information: Reports: Patient History Limitations: Reports: Respiratory Distress - History of Present Illness INITIAL COMMENTS - FREE TEXT/NARRATIVE: Pt. presents to ER with complaints of dyspnea that started at 2 AM. She states that she checked her O2 sat and it was 47%. She states that the dyspnea gets worse with activity. She states that she is not experiencing any chest pain. No nausea or vomiting. Pt. has a history of CHF and COPD and was hospitalized for the same for 40 days earlier this spring. No nausea or vomiting. She states she was feeling ok yesterday. She states that she is not experiencing any fever or chills. Denies any weakness. EMS gave the pt. lasix 40mg IV. 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: Reports: IV/IO, Other Medication(s), Oxygen - Related Data Allergies Allergy/AdvReac Type Severity Reaction Status Date / Time triamcinolone [From [place]] Allergy Severe Facial Verified 11/24/17 10:37 Swelling Home Meds: Home Meds Ascorbic Acid [Vitamin C] 500 mg PO DAILY 08/09/17 [History] Aspirin [Ecotrin] 81 mg PO DAILY 08/09/17 [History] Benazepril [Lotensin] 20 mg PO DAILY 08/09/17 [History] Bumetanide 2 mg PO BID@0800,1400 08/09/17 [History] Chlorhexidine Gluconate 15 ml PO BID 08/09/17 [History] Cholecalciferol (Vitamin D3) [Vitamin D3] 1,000 unit PO DAILY 08/09/17 [History] Ferrous Sulfate [Iron] 325 mg PO BID 08/09/17 [History] Gabapentin [Neurontin] 300 mg PO BEDTIME PRN 08/09/17 [History] Magnesium Oxide 400 mg PO DAILY 08/09/17 [History] Melatonin 6 mg PO BEDTIME 08/09/17 [History] Metoprolol Succinate 50 mg PO DAILY 08/09/17 [History] Multivit-Min/FA/Lycopene/Lut [Centrum Silver Tablet] 1 tab PO DAILY 08/09/17 [ History] Nitroglycerin [Nitrostat] 0.4 mg SL ASDIRECTED PRN 08/09/17 [History] Godfrey-3 Fatty Acids [Godfrey-3] 1 gm PO DAILY 08/09/17 [History] Omeprazole 40 mg PO BIDAC 08/09/17 [History] Polyethylene Glycol 3350 [MiraLAX] 17 gm PO DAILY PRN 08/09/17 [History] Pramipexole Di-HCl [Mirapex] 1 mg PO BEDTIME 08/09/17 [History] Rivaroxaban [Xarelto] 20 mg PO DAILY@1800 08/09/17 [History] Umeclidinium Brm/Vilanterol Tr [Anoro Ellipta 62.5-25 MCG] 1 inh PO DAILY [History] atorvaSTATin Calcium [Atorvastatin Calcium] 10 mg PO DAILY 08/09/17 [History] tiZANidine [Zanaflex] 2 mg PO TID PRN 08/09/17 [History] Past Medical History Cardiovascular History: Reports: Afib, Heart Failure, High Cholesterol, Hypertension Respiratory History: Reports: COPD, Other (See Below) Other Respiratory History: pulmonary nodule R side. centrilobular emphysema. hypoxemia. respiratory failure Gastrointestinal History: Reports: Other (See Below) Other Gastrointestinal History: dyspepsia. colitits Genitourinary History: Reports: Other (See Below) Other Genitourinary History: cystocele. urinary retention Musculoskeletal History: Reports: Other (See Below) Other Musculoskeletal History: knee strain/pain Endocrine/Metabolic History: Reports: Vitamin D Deficiency - Past Surgical History HEENT Surgical History: Reports: Cataract Surgery Respiratory Surgical History: Reports: None GI Surgical History: Reports: None, Appendectomy, Colonoscopy Other GI Surgeries/Procedures: colonoscopy 03/03/15 Female Surgical History: Reports: Hysterectomy Other Female Surgeries/Procedures: Paravaginal defect RPR (WRPR cystocele stress incont/incomp Social & Family History - Family History Family Medical History: Noncontributory - Tobacco Use Smoking Status *Q: Unknown Ever Smoked - Caffeine Use Caffeine Use: Reports: None ED ROS GENERAL - Review of Systems Review Of Systems: See Below Constitutional: Reports: No Symptoms, Malaise, Weakness, Fatigue. Denies: Fever , Chills HEENT: Reports: No Symptoms Respiratory: Reports: Shortness of Breath. Denies: Wheezing, Cough, Sputum Cardiovascular: Reports: Dyspnea on Exertion, Orthopnea, PND Endocrine: Reports: No Symptoms GI/Abdominal: Reports: No Symptoms. Denies: Diarrhea, Hematemesis, Hematochezia , Melena, Nausea : Reports: No Symptoms Musculoskeletal: Reports: No Symptoms Skin: Reports: No Symptoms Neurological: Reports: No Symptoms Psychiatric: Reports: No Symptoms Hematologic/Lymphatic: Reports: No Symptoms Immunologic: Reports: No Symptoms ED EXAM, GENERAL - Physical Exam Exam: See Below Exam Limited By: Respiratory Distress General Appearance: Alert, WD/WN, Moderate Distress Throat/Mouth: Normal Inspection, Normal Lips, Normal Teeth, Normal Gums, Normal Oropharynx, Normal Voice, No Airway Compromise Head: Atraumatic, Normocephalic Neck: Normal Inspection, Supple, Non-Tender, Full Range of Motion Respiratory/Chest: Respiratory Distress, Decreased Breath Sounds, Rales Cardiovascular: Regular Rate, Rhythm, No Edema, No Gallop, No JVD, Tachycardia Peripheral Pulses: 3+: Radial (R) GI/Abdominal: Soft, Non-Tender, No Organomegaly, No Distention (Female) Exam: Deferred Rectal (Female) Exam: Deferred Back Exam: Normal Inspection, Full Range of Motion, NT Extremities: Normal Inspection, Normal Range of Motion, Non-Tender, No Pedal Edema, Normal Capillary Refill Neurological: Alert, Oriented, CN II-XII Intact, Normal Cognition, Normal Gait, Normal Reflexes, No Motor/Sensory Deficits Psychiatric: Normal Affect, Normal Mood Skin Exam: Warm, Dry, Intact, Normal Color, No Rash Lymphatic: No Adenopathy EKG INTERPRETATION Rhythm: NSR Manson: Normal P-Wave: Present QRS: Normal ST-T: Normal QT: Normal Course - Vital Signs Last Recorded V/S: Last Vital Signs Temp 37.1 C 11/24/17 10:05 Pulse 72 11/24/17 10:05 Resp 26 H 11/24/17 10:05 BP 151/68 H 11/24/17 10:05 Pulse Ox 90 L 11/24/17 10:05 - Orders/Labs/Meds Orders: Active Orders 24 hr Category Date Time Status BIPAP Adult [RT BiPAP/CPAP] [RC] ASDIRECTED Care 11/24/17 10:12 Active EKG Documentation Completion [RC] STAT Care 11/24/17 10:10 Active Oxygen Therapy [RC] PRN Care 11/24/17 10:10 Active Chest 1V Frontal [CR] Stat Exams 11/24/17 10:53 Taken CULTURE BLOOD [BC] Stat Lab 11/24/17 10:34 Received CULTURE BLOOD [BC] Stat Lab 11/24/17 10:40 Received Blood Culture x2 Reflex Set [OM.PC] Stat Oth 11/24/17 10:11 Ordered Labs: Laboratory Tests 11/24/17 11/24/17 11/24/17 Range/Units 10:34 10:34 10:34 WBC 6.9 (4.0-10.0) x10^3/uL RBC 3.73 L (4.00-5.50) x10^6/uL Hgb 11.0 L (12.0-16.0) g/dL Hct 35.6 (33.0-47.0) % MCV 95.4 H D (78.0-93.0) fL MCH 29.5 (26.0-32.0) pg MCHC 30.9 L (32.0-36.0) g/dL RDW Coeff of Siddharth 17.0 H (10.0-15.0) % Plt Count 294 (130-400) x10^3/uL Neut % (Auto) 64.5 (50.0-80.0) % Lymph % (Auto) 21.3 L (25.0-50.0) % Garfield % (Auto) 12.3 H (2.0-11.0) % Eos % (Auto) 1.6 (0.0-4.0) % Baso % (Auto) 0.3 (0.2-1.2) % PT 10.8 (9.6-11.4) SEC INR 1.0 L (2.0-3.5) D-Dimer, Quantitative 0.19 (<=0.58) mg/LFEU ABG pH (7.35-7.45) ABG pCO2 (35-45) mmHG ABG pO2 (80-105) mmHG ABG HCO3 (22-26) mmol/L ABG Total CO2 (23-27) mmol/L ABG O2 Content (95-98) % ABG Base Excess (-2-3) mmol/L A-a Gradient Oxygen Flow Rate L/min FiO2 Blood Gas Comments Sodium 137 (136-145) mmol/L Potassium 4.2 (3.5-5.1) mmol/L Chloride 99 (98-107) mmol/L Carbon Dioxide 33 H (21-32) mmol/L Anion Gap 9.2 L (10-20) mmol/L BUN 27 H (7-18) mg/dL Creatinine 1.0 (0.55-1.02) mg/dL Est Cr Clr Drug Dosing TNP Estimated GFR (MDRD) 54 Glucose 104 (74-106) mg/dL Lactic Acid (0.4-2.0) mmol/L Calcium 8.6 (8.5-10.1) mg/dL Corrected Calcium 9.40 (8.5-10.1) mg/dL Phosphorus 4.6 (2.6-4.7) mg/dL Magnesium 2.2 (1.8-2.4) mg/dL Total Bilirubin 0.4 (0.2-1.0) mg/dL AST 11 L (15-37) U/L ALT 22 (14-59) U/L Alkaline Phosphatase 76 (46-116) U/L Troponin I < 0.017 (<=0.056) ng/mL C-Reactive Protein 11.1 H (<=0.9) mg/dL NT-Pro-B Natriuret Pep 370 (<=450) pg/mL Total Protein 7.1 (6.4-8.2) g/dL Albumin 3.0 L (3.4-5.0) g/dL Globulin 4.1 Albumin/Globulin Ratio 0.73 11/24/17 11/24/17 Range/Units 10:34 10:45 WBC (4.0-10.0) x10^3/uL RBC (4.00-5.50) x10^6/uL Hgb (12.0-16.0) g/dL Hct (33.0-47.0) % MCV (78.0-93.0) fL MCH (26.0-32.0) pg MCHC (32.0-36.0) g/dL RDW Coeff of Siddharth (10.0-15.0) % Plt Count (130-400) x10^3/uL Neut % (Auto) (50.0-80.0) % Lymph % (Auto) (25.0-50.0) % Garfield % (Auto) (2.0-11.0) % Eos % (Auto) (0.0-4.0) % Baso % (Auto) (0.2-1.2) % PT (9.6-11.4) SEC INR (2.0-3.5) D-Dimer, Quantitative (<=0.58) mg/LFEU ABG pH 7.40 (7.35-7.45) ABG pCO2 58 H (35-45) mmHG ABG pO2 72 L (80-105) mmHG ABG HCO3 36 H (22-26) mmol/L ABG Total CO2 38 H (23-27) mmol/L ABG O2 Content 94 L (95-98) % ABG Base Excess 11 H (-2-3) mmol/L A-a Gradient TNP Oxygen Flow Rate 6 L/min FiO2 0.44 Blood Gas Comments TNP Sodium (136-145) mmol/L Potassium (3.5-5.1) mmol/L Chloride (98-107) mmol/L Carbon Dioxide (21-32) mmol/L Anion Gap (10-20) mmol/L BUN (7-18) mg/dL Creatinine (0.55-1.02) mg/dL Est Cr Clr Drug Dosing Estimated GFR (MDRD) Glucose (74-106) mg/dL Lactic Acid 0.6 (0.4-2.0) mmol/L Calcium (8.5-10.1) mg/dL Corrected Calcium (8.5-10.1) mg/dL Phosphorus (2.6-4.7) mg/dL Magnesium (1.8-2.4) mg/dL Total Bilirubin (0.2-1.0) mg/dL AST (15-37) U/L ALT (14-59) U/L Alkaline Phosphatase (46-116) U/L Troponin I (<=0.056) ng/mL C-Reactive Protein (<=0.9) mg/dL NT-Pro-B Natriuret Pep (<=450) pg/mL Total Protein (6.4-8.2) g/dL Albumin (3.4-5.0) g/dL Globulin Albumin/Globulin Ratio Meds: Medications Discontinued Medications Generic Name Dose Route Start Last Admin Trade Name Freq PRN Reason Stop Dose Admin Ceftriaxone Sodium 2 gm 11/24/17 11:16 11/24/17 11:29 Rocephin IM 11/24/17 11:17 2 gm ONETIME ONE Administration - Re-Assessments/Exams Free Text/Narrative Re-Assessment/Exam: 11/24/17 11:05 Pt. was tachypneic and speaking in 3-4 word sentences on arrival and maintaining O2 sats. in the 85-90% range on NC at 6Lmin. Pt. was subsequently placed on bipap with 50% FiO2. With the positive pressure, pt. O2 sat improved to 95%. Departure - Departure Time of Disposition: 11:44 Disposition: DC/Tfer to [facility] 02 Clinical Impression: Respiratory failure CAP (community acquired pneumonia) Qualifiers: Laterality: right Lung location: lower lobe of lung Qualified Code(s): J18.1 - Lobar pneumonia, unspecified organism CHF (congestive heart failure) Qualifiers: Heart failure type: combined systolic and diastolic Heart failure chronicity: acute on chronic Qualified Code(s): I50.43 - Acute on chronic combined systolic (congestive) and diastolic (congestive) heart failure - Discharge Information Referrals: Emily Sheikh MD [Primary Care Provider] - Forms: ED Department Discharge, Interfacility Transfer EMTALA - My Orders Last 24 Hours: My Active Orders 11/24/17 10:10 EKG Documentation Completion [RC] STAT Oxygen Therapy [RC] PRN 11/24/17 10:11 Blood Culture x2 Reflex Set [OM.PC] Stat 11/24/17 10:12 BIPAP Adult [RT BiPAP/CPAP] [RC] ASDIRECTED 11/24/17 10:34 CULTURE BLOOD [BC] Stat 11/24/17 10:40 CULTURE BLOOD [BC] Stat 11/24/17 10:53 Chest 1V Frontal [CR] Stat - Assessment/Plan Last 24 Hours: My Active Orders 11/24/17 10:10 EKG Documentation Completion [RC] STAT Oxygen Therapy [RC] PRN 11/24/17 10:11 Blood Culture x2 Reflex Set [OM.PC] Stat 11/24/17 10:12 BIPAP Adult [RT BiPAP/CPAP] [RC] ASDIRECTED 11/24/17 10:34 CULTURE BLOOD [BC] Stat 11/24/17 10:40 CULTURE BLOOD [BC] Stat 11/24/17 10:53 Chest 1V Frontal [CR] Stat Plan: Pt. will be transported via [facility] ground ambulance. She is code 1. Dr. Campbell accepts the pt. in transfer.
[2017-11-24 11:12] LABS: PCO2 ARTERIAL 58 mmHG (35-45); PO2 ARTERIAL 72 mmHG (80-105)
[2017-11-24 11:13] LABS: BASE EXCESS ARTERIAL 11 mmol/L (-2-3); BICARBONATE,ARTERIAL 36 mmol/L (22-26)
[2017-11-24] MEDS ORDERED: cefTRIAXone 2 GM Vial IM ONE (11:16)
[2017-11-24 11:20] LABS: O2 FLOW RATE 6 L/min
[2017-11-24 11:31] LABS: ANION GAP 9.2 mmol/L (10-20); CHLORIDE,CL 99 mmol/L (98-107); SODIUM,NA 137 mmol/L (136-145)
[2017-11-24] MEDS ORDERED: Azithromycin 500 MG in Sodium Chloride 0.9% 250 ML IV ONE (11:46)
[2017-11-24 12:15] VITALS: BP 118/58
== END 2017-11-24 12:45 | disposition short-term general hospital (02) ==
LOC: VM.ED 10:05
DX: J96.90 Respiratory failure, unspecified, unspecified whether with hypoxia or hypercapnia (principal); I11.0 Hypertensive heart disease with heart failure; I50.43 Acute on chronic combined systolic (congestive) and diastolic (congestive) heart failure; J18.9 Pneumonia, unspecified organism; J44.9 Chronic obstructive pulmonary disease, unspecified; E78.00 Pure hypercholesterolemia, unspecified; I48.91 Unspecified atrial fibrillation; Z79.899 Other long term (current) drug therapy; Z79.82 Long term (current) use of aspirin; Z88.8 Allergy status to other drugs, medicaments and biological substances
CPT/HCPCS: 36415; 36600; 71045; 80053; 82803; 83605; 83735; 83880; 84100; 84484; 85025; 85379; 85610; 86140; 87040; 93005; 94660; 94760; 99285; J0696